=== PATIENT | female | born 1955 | race Caucasian/White ===

== ENCOUNTER 2020-02-02 08:11 | Outpatient (CLI) | payer MEDICAID ==
--- NOTE | 2020-02-02 11:03 | Ultrasound Report ---
Reason: AXILLARY MASS Procedure Date: 02/02/2020 Accession Number: [id number] / [id number] Procedure: US - Breast Unilateral Limited CPT Code: Final Report FULL RESULT: EXAM: Diagnostic Zachery Poe, Breast Unilateral Limited DATE: 02/02/2020 9:16 AM CLINICAL HISTORY: Diagnostic examination. Family history of breast cancer in the mother at the age of 60. The patient is referred for tenderness in the axilla, palpable to the referring physician on physical examination. The patient relates that symptoms have since resolved. TECHNIQUE: (B) - Bilateral CC and MLO views were obtained. Right breast ML views are obtained. Right breast focused ultrasound is performed. COMPARISON: None PARENCHYMAL PATTERN: (D) - The breast(s) demonstrate(s) heterogeneously dense fibroglandular parenchyma. FINDINGS: The right axilla is carefully interrogated by ultrasound. Normal axillary breast tissue is seen. No suspicious mass is identified sonographically. There are no suspicious masses, calcifications, or areas of distortion mammographically. IMPRESSION: Negative examination. BI-RADS category 1. RECOMMENDATION: (ANNUAL) - Recommend routine annual screening mammography. BI-RADS CATEGORY: (1) - Negative. STANDARD QUALIFYING STATEMENTS: 1. This examination was not reviewed with the aid of Computer-Aided Detection (CAD). 2. A negative or benign imaging report should not preclude biopsy if clinically suspicious findings are present. 3. Dense breasts may obscure an underlying neoplasm. 4. This examination was reviewed with the aid of 3D breast imaging (tomosynthesis).
== END 2020-02-02 08:12 | disposition home or self-care (01) ==
LOC: DI 08:11
PROVIDERS: ATTEND Family Medicine
DX: R22.31 Localized swelling, mass and lump, right upper limb (principal); Z80.3 Family history of malignant neoplasm of breast
CPT/HCPCS: 76642; 77066

== ENCOUNTER 2020-12-25 08:00 | Outpatient (CLI) | payer MEDICARE, MEDICAID ==
[2020-12-25 17:55] LABS: BASOPHILS # (AUTO) 0.1 10^3/uL (0.0-0.1); BASOPHILS % (AUTO) 1.1 %; EOSINOPHILS # (AUTO) 0.1 10^3/uL (0.0-0.7); HGB - HEMOGLOBIN 17.6 g/dL (12.0-16.0); LYMPHOCYTES # (AUTO) 1.4 10^3/uL (1.5-3.5); LYMPHOCYTES % (AUTO) 24.3 %; MEAN CORPUSCULAR HEMOGLOBIN 31.5 pg (27.0-31.0); MEAN CORPUSCULAR HGB CONC 33.6 g/dL (32.0-36.0); MEAN CORPUSCULAR VOLUME 93.9 fL (81.0-99.0); MEAN PLATELET VOLUME 10.2 fL (7.9-10.8); MONOCYTES # (AUTO) 0.5 10^3/uL (0.0-1.0); MONOCYTES % (AUTO) 9.4 %; NEUTROPHILS # (AUTO) 3.5 10^3/uL (1.5-6.6); NEUTROPHILS % (AUTO) 62.8 %; PLT - PLATELET COUNT 237 10^3/uL (130-450); RED BLOOD COUNT 5.58 10^6/uL (4.20-5.40); WHITE BLOOD COUNT 5.6 x10^3/uL (4.8-10.8)
[2020-12-25 18:12] LABS: ALBUMIN 4.5 g/dL (3.2-5.5); ALBUMIN/GLOBULIN RATIO 1.5 (1.0-2.2); ALKALINE PHOSPHATASE 71 IU/L (42-121); ALT ALANINE AMINOTRANSFERASE 40 IU/L (10-60); AST ASPARTATE AMINOTRANSFERASE 34 IU/L (10-42); BILIRUBIN,TOTAL 0.6 mg/dL (0.2-1.0); BUN - BLOOD UREA NITROGEN 24 mg/dL (6-20); CALCIUM 9.3 mg/dL (8.5-10.3); CARBON DIOXIDE - CO2 25 mmol/L (21-32); CHLORIDE 101 mmol/L (101-111); CHOL/HDL RATIO 2.9 (<4.4); CHOLESTEROL 206 mg/dL; CREATININE 0.8 mg/dL (0.4-1.0); GLUCOSE 119 mg/dL (70-100); HDL CHOLESTEROL 72 mg/dL; LDL CHOLESTEROL,CALCULATED 120 mg/dL; LDL/HDL RATIO 1.7 (<4.4); TOTAL PROTEIN 7.5 g/dL (6.7-8.2); VLDL CHOLESTEROL 14 mg/dL
== END 2020-12-25 23:59 | disposition home or self-care (01) ==
LOC: LAB.WCP 08:00
PROVIDERS: ATTEND Internal Medicine
DX: C21.0 Malignant neoplasm of anus, unspecified (principal); F43.21 Adjustment disorder with depressed mood; Z83.438 Family history of other disorder of lipoprotein metabolism and other lipidemia
CPT/HCPCS: 36415; 80053; 80061; 83721; 84443; 85025

== ENCOUNTER 2021-03-30 07:53 | Outpatient (CLI) | payer MEDICAID, MEDICARE ==
--- NOTE | 2021-04-02 12:57 | Mammography Report ---
BILATERAL DIGITAL SCREENING MAMMOGRAM 3D/2D: 03/30/2021 CLINICAL: Routine screening. Comparison is made to exam dated: 04/04/2008 mammogram - [facility]. The tissue of both breasts is predominantly fatty. There is possible architectural distortion in the left breast middle depth central to the nipple seen on the craniocaudal view only. No other significant masses, calcifications, or other findings are seen in either breast. IMPRESSION: INCOMPLETE: NEEDS ADDITIONAL IMAGING EVALUATION The possible architectural distortion in the left breast is indeterminate. Additional views with pos sible ultrasound are recommended. This exam was interpreted at Station ID: [id number]. NOTE: For mammograms, a report in lay terms will be sent to the patient. Approximately 15% of breast malignancies will not be visualized mammographically. In the management of a palpable breast mass, a negative mammogram must not discourage biopsy of a clinically suspicious lesion. Electronically Signed By: Baldo Cole M.D. jr/:03/30/2021 10:55:57 ACR BI-RADS Category 0: Incomplete 3340F PARENCHYMAL PATTERN: (F) - The breast(s) demonstrate(s) diffuse fatty replacement. BI-RADS CATEGORY: (0) - 0 Mammo and US [id number] Immediate follow-up LATERALITY: (B)
== END 2021-03-30 07:54 | disposition home or self-care (01) ==
LOC: DI 07:53
PROVIDERS: ATTEND Internal Medicine
DX: Z12.31 Encounter for screening mammogram for malignant neoplasm of breast (principal); R92.8 Other abnormal and inconclusive findings on diagnostic imaging of breast

== ENCOUNTER 2021-03-30 07:56 | Outpatient (CLI) | payer MEDICARE, MEDICAID ==
--- NOTE | 2021-03-30 09:17 | DEXA Report ---
PROCEDURE: Dexa Spine and/or Hip INDICATIONS: POST MENOPAUSAL TECHNIQUE: Dual energy x-ray absorptiometry (DXA) was performed on a Pollenizer System. Regions measur ed are the AP Spine, femoral neck, and if needed forearm. COMPARISON: None. FINDINGS: Lumbar Spine: Bone Mineral Density 0.948 g/cm/cm,T score -0.5, within normal limits there is Left Hip: Bone Mineral Density 0.813 g/cm/cm,T score -1.5, osteopenic Left Femoral Neck: Bone Mineral Density 0.787 g/cm/cm, T score -1.8, osteopenic (T score greater or equal to -1.0: NORMAL) (T score from -1.1 to -2.4: OSTEOPENIA) (T score less than or equal to -2.5 to: OSTEOPOROSIS) Impression: The patient is osteopenic based on upright show criteria. Patients with diagnosis of osteoporosis or osteopenia should have regular bone mineral density assess ment. For those eligible for Medicare, routine testing is allowed once every 2 years. Testing frequ ency can be increased for patients who have rapidly progressing disease or for those who are receivin g medical therapy to restore bone mass. Reviewed by: Shanda Fernandez MD on 03/30/2021 9:16 AM PDT Approved by: Shanda Fernandez MD on 03/30/2021 9:16 AM PDT Station ID: [id number]
== END 2021-03-30 07:57 | disposition home or self-care (01) ==
LOC: DI 07:56
PROVIDERS: ATTEND Internal Medicine
DX: M85.89 Other specified disorders of bone density and structure, multiple sites (principal)

== ENCOUNTER 2021-04-24 11:31 | Outpatient (CLI) | payer MEDICARE, MEDICAID ==
--- NOTE | 2021-04-25 14:08 | Ultrasound Report ---
LIMITED ULTRASOUND OF LEFT BREAST: 04/24/2021 CLINICAL: Patient returns today to evaluate a focal asymmetry in the left breast. Comparison is made to exams dated: 04/24/2021 mammogram, 03/30/2021 mammogram - [facility], 02/02/2020 mammogram, and 04/04/2008 mammogram - [facility]. Real-time ultrasound of the left breast 6 o'clock, 12 o'clock, and retroareolar regions was performe d on the areas of interest. Banda scale images of the real-time examination were reviewed. No discrete cystic or solid mass lesion identified in the area of mammographic abnormality. IMPRESSION: NEGATIVE There is no sonographic evidence of malignancy. There are no abnormalities seen in the left breast to correspond with the mammography finding in the central left breast. A 1 year screening mammogram is recommended. This exam was interpreted at Station ID: [id number]. Electronically Signed By: Rommel Camejo M.D. ddp/:04/24/2021 12:39:47 Ultrasound BI-RADS: 1 Negative BI-RADS CATEGORY: (1) - 1 RECOMMENDATION: (ANNUAL) - Recommend routine annual screening mammography. [id number] 1 year screening LATERALITY: (B)
--- NOTE | 2021-04-25 14:08 | Mammography Report ---
UNILATERAL LEFT DIGITAL DIAGNOSTIC MAMMOGRAM 3D/2D: 04/24/2021 CLINICAL: Patient returns today to evaluate an architectural distortion in the left breast. Comparison is made to exams dated: 03/30/2021 mammogram - [facility], 02/02/2020 mamm ogram, and 04/04/2008 mammogram - [facility]. The tissue of left breast is heterogeneousl y dense. This may lower the sensitivity of mammography. There is an oval equal density asymmetry with an indistinct margin in the left breast middle depth ce ntral to the nipple seen on the craniocaudal view only. This is less prominent on additional views. No other significant masses or calcifications are seen in the breast. IMPRESSION: INCOMPLETE: NEEDS ADDITIONAL IMAGING EVALUATION The oval equal density asymmetry in the left breast is indeterminate. An ultrasound is recommended. Ultrasound will be performed immediately following the current exam. This exam was interpreted at Station ID: [id number]. NOTE: For mammograms, a report in lay terms will be sent to the patient. Approximately 15% of breast malignancies will not be visualized mammographically. In the management of a palpable breast mass, a negative mammogram must not discourage biopsy of a clinically suspicious lesion. Electronically Signed By: Rommel Camejo M.D. ddp/:04/24/2021 12:38:16 ACR BI-RADS Category 0: Incomplete 3340F PARENCHYMAL PATTERN: (D) - The breast(s) demonstrate(s) heterogeneously dense fibroglandular terrell faye. BI-RADS CATEGORY: (0) - 0 Ultrasound [id number] Immediate follow-up LATERALITY: (B)
== END 2021-04-24 11:32 | disposition home or self-care (01) ==
LOC: DI 11:31
PROVIDERS: ATTEND Internal Medicine
DX: R92.8 Other abnormal and inconclusive findings on diagnostic imaging of breast (principal)

== ENCOUNTER 2022-02-14 10:55 | Outpatient (CLI) | payer MEDICAID, MEDICARE ==
--- NOTE | 2022-02-14 16:57 | Ultrasound Report ---
PROCEDURE: Head or Neck Soft Tissue INDICATIONS: THYROID NODULE TECHNIQUE: Real-time scanning was performed of the thyroid gland, with image documentation. COMPARISON: None FINDINGS: Right: Thyroid lobe measures 4.2 x 1.2 x 1.9 cm, and is homogeneous in echotexture. Left: Thyroid lobe measures 4.1 x 1.3 x 1.5 cm, and is homogenous in echotexture. Isthmus: 1.3 mm thick. Nodule number: One Location: Left upper anterior Size: 0.7 x 0.3 x 0.5 cm. Composition: Predominantly solid Echogenicity: Predominantly isoechoic Shape: wider than tall. Margins: Smooth Echogenic foci: Punctate Total points: 6 ACR TI-RADS category: Moderately suspicious Nodule number: Two Location: Left upper posterior Size: 0.5 0.2 x 0.4 cm. Composition: Predominantly cystic Echogenicity: Predominantly hypoechoic Shape: wider than tall. Margins: Smooth Echogenic foci: 9 Total points: 2 ACR TI-RADS category: Not suspicious Nodule number: Three Location: Left mid Size: 2.2 x 1.0 x 1.6 cm. Composition: Solid Echogenicity: Isoechoic Shape: wider than tall. Margins: Smooth Echogenic foci: None Total points: 3 ACR TI-RADS category: Mildly suspicious IMPRESSION: Thyroid nodules. Nodule has to #3 has mildly suspicious imaging characteristics with siz e greater than 1.5 cm at less than 2.5 cm. Recommend follow-up ultrasound in 1, 3 and 5 years based o n criteria outlined below. ACR TI-RADS definitions and recommendations: TI-RADS 1 (benign): 0 points. FNA not needed. TI-RADS 2 (not suspicious): 2 points. FNA not needed. TI-RADS 3 (mildly suspicious): 3 points. "FNA if 2.5 cm or larger, follow up if 1.5 cm or larger (at 1, 3, and 5 years). TI-RADS 4 (moderately suspicious): 4-6 points. "FNA if 1.5 cm or larger, follow up if 1 cm or larger (at 1, 2, 3, and 5 years). TI-RADS 5 (highly suspicious): 7 points or more. "FNA if 1 cm or larger, follow up if 0.5 cm or larger (every year for 5 years). Reviewed by: Aura Agosto MD, PhD on 02/14/2022 4:55 PM PDT Approved by: Aura Agosto MD, PhD on 02/14/2022 4:55 PM PDT Station ID: [id number]
== END 2022-02-14 10:56 | disposition home or self-care (01) ==
LOC: DI 10:55
PROVIDERS: ATTEND Family Medicine
DX: E04.2 Nontoxic multinodular goiter (principal)